=== PATIENT | male | born 1980 | race Caucasian/White ===

== ENCOUNTER 2018-10-12 16:24 | Inpatient (IN) | payer BC | END 2018-10-15 13:10 | disposition home or self-care (01) | LOC: ER 16:24 → ED HOLD 20:33 → SUR 3N 22:16 ==

== ENCOUNTER 2022-08-04 05:29 | Emergency (ER) | payer BC ==
[~2022-08-04 05:29] MED LIST: FAMO20TA8 PO; NO HOME MEDS
== END 2022-08-04 05:54 | disposition left against medical advice (07) ==
LOC: ER 05:29
DX: R07.81 Pleurodynia (principal); Z53.21 Procedure and treatment not carried out due to patient leaving prior to being seen by health care provider